=== PATIENT | female | born 1950 | race Two or more races ===

== ENCOUNTER 2020-10-06 09:08 | Inpatient (IN) | payer OTHER, MEDICARE ==
[~2020-10-06] VITALS: Ht 154.9 cm; Wt 58.1 kg
--- NOTE | 2020-10-06 09:08 | NUR ---
PT BIBRA 79 FROM HOME C/O DIZZINES AND CHEST TIGHTNESS STARTED LAST NIGHT. PT IS AAOX4, NOT IN RESPIRATORY DISTRESS, HOOKED TO COLLECTIONS ATTORNEY, KEPT RESTED AND COMFORTABLE. WILL CONTINUE TO MONITOR.
--- NOTE | 2020-10-06 09:16 | NUR ---
AT BEDSIDE FOR EVAL.
[2020-10-06] MEDS ORDERED: ASPIRIN 325 MG TABLET ONE (09:23)
--- NOTE | 2020-10-06 09:26 | NUR ---
PER PATIENT SHE WAS GIVEN ASA 324MG BY THE EMS.
--- NOTE | 2020-10-06 09:27 | NUR ---
SON NAME DAVE [phone]
[2020-10-06 09:28] LABS: BASOPHILS # (AUTO) 0.1 /CMM (0.0-0.2); BASOPHILS % (AUTO) 1.1 % (0.0-2.0); EOSINOPHILS % (AUTO) 1.7 % (0.0-6.0); HEMATOCRIT 42 % (33-45); HEMOGLOBIN 13.6 g/dL (11.5-14.8); LYMPHOCYTES % (AUTO) 32.4 % (20.0-44.0); MEAN CORPUSCULAR HGB CONC 33 g/dl (31.0-36.0); MEAN CORPUSCULAR VOLUME 88 fL (82-100); MONOCYTES # (AUTO) 0.6 /CMM (0.1-1.30); MONOCYTES % (AUTO) 9.9 % (2.0-12.0); NEUTROPHILS # (AUTO) 3.3 /CMM (1.8-8.9); NEUTROPHILS % (AUTO) 54.9 % (43.0-81.0); PLATELET COUNT (AUTO) 297 /CMM (150-450); RED BLOOD CELL COUNT(AUTO) 4.72 MIL/uL (4.0-5.2); WHITE BLOOD COUNT (AUTO) 6.1 K/uL (4.3-11.0)
[2020-10-06] MEDS ORDERED: ASPIRIN 325 MG TABLET PO ONE (09:30)
[2020-10-06 09:35] LABS: CALCIUM, SERUM 9.2 mg/dL (8.5-10.1); CARBON DIOXIDE 25 mmol/L (21-32); CHLORIDE 104 mmol/L (98-107); CREATININE 0.7 mg/dL (0.6-1.3); GLUCOSE 127 mg/dL (74-106); SODIUM SERUM 140 mmol/L (136-145); UREA NITROGEN, BLOOD 10 mg/dL (7-18)
[2020-10-06] MEDS ORDERED: LORA10TA7 PO (09:39)
[2020-10-06] MEDS ORDERED: ATOR20TA PO (09:39)
[2020-10-06] MEDS ORDERED: GABA-532 PO (09:39)
[2020-10-06] MEDS ORDERED: ASPI-1169 PO (09:39)
--- NOTE | 2020-10-06 10:02 | NUR ---
PATIENT CAME BACK FROM CT.
[2020-10-06] MEDS ORDERED: IV NS 0.9% 1,000 ML IV ONE (12:30)
[2020-10-06] MEDS ORDERED: MECLIZINE HCL 12.5 MG TABLET PO ONE (12:30)
[2020-10-06] MEDS ORDERED: MECLIZINE HCL 25 MG TABLET ONE (12:38)
--- NOTE | 2020-10-06 12:53 | NUR ---
SPOKED TO SONDRA PERSONNEL INTERVIEWER. AUTH GIVEN.
[2020-10-06] MEDS ORDERED: IV NS 0.9% 500 ML BAG IV ONE (13:00)
[2020-10-06] MEDS ORDERED: MAGNESIUM HYDROXIDE 30 ML UDC PO PRN (14:00)
[2020-10-06] MEDS ORDERED: ACETAMINOPHEN 325 MG TABLET PO PRN (14:00)
[2020-10-06] MEDS ORDERED: MAG HYDROX/AL HYDROX/SIMETH 30 ML UDC PO PRN (14:00)
[2020-10-06] MEDS ORDERED: HYDROCODONE/APAP 5/325MG TABLET PO PRN (14:00)
[2020-10-06] MEDS ORDERED: ONDANSETRON HCL/PF 4 MG/2 ML VIAL IVP PRN (14:00)
[2020-10-06] MEDS ORDERED: Z GUARD REMEDY 2 OZ OINT TP PRN (14:00)
--- NOTE | 2020-10-06 15:16 | NUR ---
ROOM GIVEN 310-2
--- NOTE | 2020-10-06 15:39 | NUR ---
REPORT GIVEN TO DIANA HAHN FOR JENNIFER.
--- NOTE | 2020-10-06 16:10 | NUR ---
RN NOTES PATIENT ARRIVED TO UNIT AT ROOM 310-2.
--- NOTE | 2020-10-06 18:40 | NUR ---
MS RN ADMITTING NOTES ADMITTED THIS 70-Y/O PATIENT FROM HOME WITH ADMITTING DIAGNOSES OF CHEST PAIN AND DIZZINESS. PATIENT IS AWAKE AND VERBALLY RESPONSIVE, A/O X4, MOH[place]K-SPEAKING BUT UNDERSTANDS ESTONIAN. NOT IN ACUTE DISTRESS. BREATHING EVEN AND UNLABORED, TOLERATING ROOM AIR. IV LINE ON LEFT HAND #20 INTACT AND PATENT. AMBULATORY W/ ASSIST. PATIENT WAS ORIENTED TO ROOM AND USE OF CALL LIGHT BUTTON FOR STAFF ASSISTANCE. ABLE TO EAT DINNER. SAFETY PRECAUTIONS IN PLACE: BED LOCKED AND ON LOWEST POSITION, SR UP X2, CALL LIGHT W/IN REACH. WILL ENDORSE TO NEXT SHIFT FOR JENNIFER.
[2020-10-06] MEDS: GABAPENTIN 100 MG CAPSULE PO SCH (19:13)
--- NOTE | 2020-10-06 19:15 | NUR ---
RN NOTES PERFORATING MACHINE OPERATOR AT BEDSIDE.
[2020-10-06] MEDS: ENOXAPARIN SODIUM 40 MG/0.4 ML DISP.SYRIN SQ SCH (19:35)
[2020-10-06 20:00] VITALS: BP_SYST 117; BP_SYST 118; BP_DIAS 50; BP_DIAS 64
--- NOTE | 2020-10-06 20:00 | NUR ---
RN NOTES RECEIVED PATIENT IN BED, ALERT/ORIENTED X4, ROOM AIR, NO CHEST PAIN, COMPLAINING OF DIZZINESS, EDUCATED PATIENT TO REMAIN IN BED AND CALL FOR ASSISTANCE WHEN GOING TO TOILET, FALL PRECAUTION, WILL CONTINUE TO MONITOR
[2020-10-06 20:02] VITALS: BP 118/64
[2020-10-06] MEDS ORDERED: ATORVASTATIN 10 MG TABLET PO SCH (22:00)
[2020-10-07] VITALS: BP 112/64
[2020-10-07 04:00] VITALS: BP 105/57
--- NOTE | 2020-10-07 06:55 | NUR ---
ALERT/ORIENTED X4, ROOM AIR, NO COMPLAIN OF PAIN, COMPLAINING OF DIZZINESS, LOVENOX FOR VTE, FALL PRECAUTION, CARDIAC CONSULT, DVT PPX.
[2020-10-07 07:00] LABS: BASOPHILS # (AUTO) 0.1 /CMM (0.0-0.2); BASOPHILS % (AUTO) 0.8 % (0.0-2.0); EOSINOPHILS % (AUTO) 2.1 % (0.0-6.0); HEMATOCRIT 39 % (33-45); HEMOGLOBIN 12.9 g/dL (11.5-14.8); LYMPHOCYTES # (AUTO) 2.1 /CMM (0.8-4.8); LYMPHOCYTES % (AUTO) 33.6 % (20.0-44.0); MEAN CORPUSCULAR HGB CONC 33 g/dl (31.0-36.0); MEAN CORPUSCULAR VOLUME 89 fL (82-100); MONOCYTES # (AUTO) 0.6 /CMM (0.1-1.30); MONOCYTES % (AUTO) 9.7 % (2.0-12.0); NEUTROPHILS # (AUTO) 3.4 /CMM (1.8-8.9); NEUTROPHILS % (AUTO) 53.8 % (43.0-81.0); PLATELET COUNT (AUTO) 274 /CMM (150-450); RED BLOOD CELL COUNT(AUTO) 4.42 MIL/uL (4.0-5.2); WHITE BLOOD COUNT (AUTO) 6.3 K/uL (4.3-11.0)
--- NOTE | 2020-10-07 07:18 | NUR ---
RN OPENING NOTES RECEIVED PATIENT ON BED ALERT AND ORIENTED WITH NO SIGNS OF DISTRESS. PATIENT ON ROOM AIR SATURATING AT 98% VITAL SIGNS WITHIN NORMAL LIMITS. PATIENT WITH OCCASIONAL DIZZINESS. INSTRUCTED TO TAKE SLOW CHANGES IN POSITION. VERBALIZED UNDERSTANDING. PATIENT WITH LEFT HAND IV PERIPHERAL LINE G#20 AND RIGHT HAND G#18, PATENT AND INTACT. COMFORT MEASURES PROVIDED. ENCOURAGED TO DO DEEP BREATHING EXERCISES. SAFETY MEASURES ENSURED. BED MAINTAINED ON LOWEST POSITION AND LOCKED. CALL LIGHT AND SIDE TABLE WITHIN REACH AT ALL TIMES. WILL CONTINUE TO MONITOR PATIENT.
[2020-10-07 07:29] LABS: CREATININE 0.6 mg/dL (0.6-1.3); MAGNESIUM 2.2 mg/dL (1.8-2.4); POTASSIUM 4.2 mmol/L (3.5-5.1)
[2020-10-07] MEDS: GABAPENTIN 100 MG CAPSULE PO SCH (08:31)
[2020-10-07] MEDS ORDERED: ASPIRIN 81 MG TAB.CHEW PO SCH (09:00)
[2020-10-07] MEDS ORDERED: LORATADINE 10 MG TABLET PO SCH (09:00)
[2020-10-07] MEDS: ENOXAPARIN SODIUM 40 MG/0.4 ML DISP.SYRIN SQ SCH (14:10)
--- NOTE | 2020-10-07 15:20 | NUR ---
INSPECTOR COATED FABRICS NOTES PATIENT WAS SEEN BY MD TODAY W/ ORDER FOR DISCHARGE TO HOME W/ FOLLOW-UP W/ DR. ROBERTSON IN 1 WEEK OUTPATIENT. DISCHARGE INSTRUCTIONS AND EDUCATION PROVIDED TO PATIENT AND SON, CURRENTLY AT BEDSIDE. EDUCATION AND TEACHING PROVIDED TO PATIENT REGARDING SMOKING CESSATION AND EMPHASIS ON HEALTH RISKS OF SMOKING. PATIENT VERBALIZED UNDERSTANDING. DISCHARGE FORM AND BELONGINGS LIST FORM SIGNED BY PATIENT. ALL BELONGINGS ACCOUNTED FOR. NAME ARMBAND AND IV LINES REMOVED, NO BLEEDING NOTED. PATIENT IS AMBULATORY AND ACCOMPANIED BY SON AND ME TO THE LOBBY AND PICKED UP BY FAMILY VIA PRIVATE CAR. CHARGE NURSE AND MD AWARE OF DISCHARGE.
== END 2020-10-07 15:16 | disposition home or self-care (01) | DRG 111 ==
LOC: ER 09:09 → TELE 15:25 → MED 10-07 08:07
PROVIDERS: ADMIT Internal Medicine; ATTEND Internal Medicine
DX: H81.10 Benign paroxysmal vertigo, unspecified ear (principal); G62.9 Polyneuropathy, unspecified; R07.89 Other chest pain; E78.5 Hyperlipidemia, unspecified; Z79.82 Long term (current) use of aspirin; Z79.899 Other long term (current) drug therapy; I10 Essential (primary) hypertension
CPT/HCPCS: 36415; 70450-TC; 71045-TC; 80048-TC; 80061-TC; 83735-TC; 84100-TC; 84484-TC; 85025-TC; 87081-TC; 93307-TC; C9803; G0378; J1650; J7030; J8597